=== PATIENT | male | born 1985 | race Caucasian/White ===

== ENCOUNTER 2016-11-28 09:38 | Emergency (ER) | payer SELFPAY ==
[2016-11-28 09:44] VITALS: RESP 18
[2016-11-28] MEDS ORDERED: SODIUM CHLORIDE 0.9% 1,000 ML IV STA ×2 (09:52)
[2016-11-28] MEDS ORDERED: ONDANSETRON 4 MG/2 ML VIAL IVP STA (09:52)
--- NOTE | 2016-11-28 09:55 | ED ---
General Adult HPI - General Chief complaint: Abdominal Pain Stated complaint: ABDOMINAL PAIN, NAUSEA Time Seen by Provider: 11/28/16 09:46 Source: patient, RN notes reviewed Mode of arrival: ambulatory Limitations: no limitations - History of Present Illness Initial comments: Patient 31-year-old male who presents emergency room today with chief complaint of symptoms of nausea vomiting abdominal pain that began late last night approximately 12 hours ago. He does admit that it started approximately 2 hours after eating some chicken nuggets. Patient denies any signs of blood in the emesis. Does admit to a few episodes of diarrhea. He denies any other complaints associated symptoms. Patient denies any recent fever, chills, shortness of breath, chest pain, back pain, numbness or tingling, dysuria or hematuria, constipation, headaches or visual changes, or any other complaints. - Related Data Home Medications Medication Instructions Recorded Confirmed FLUoxetine HCL [Sarafem] 60 mg PO DAILY 09/27/16 09/27/16 Previous Rx's Medication Instructions Recorded Famotidine [Pepcid] 20 mg PO DAILY PRN #10 tablet 09/27/16 Ondansetron Odt [Zofran Odt] 4 mg PO Q8HR PRN #12 tab 09/27/16 Ondansetron Odt [Zofran ODT] 4 mg PO Q8HR PRN #15 tab 11/28/16 Allergies Allergy/AdvReac Type Severity Reaction Status Date / Time No Known Allergies Allergy Verified 11/28/16 09:44 Review of Systems ROS Statement: Those systems with pertinent positive or pertinent negative responses have been documented in the HPI. ROS Other: All systems not noted in ROS Statement are negative. Past Medical History Past Medical History: No Reported History History of Any Multi-Drug Resistant Organisms: None Reported Past Surgical History: Ear Surgery Past Psychological History: Depression Smoking Status: Former smoker Past Alcohol Use History: Occasional Past Drug Use History: None Reported General Exam - General Exam Comments Initial Comments: General: The patient is awake and alert, in no distress, and does not appear acutely ill. Eye: Pupils are equal, round and reactive to light, extra-ocular movements are intact. No nystagmus. There is normal conjunctiva bilaterally. No signs of icterus. Ears, nose, mouth and throat: There are moist mucous membranes and no oral lesions. Neck: The neck is supple, there is no tenderness or JVD. Cardiovascular: There is a regular rate and rhythm. No murmur, rub or gallop is appreciated. Respiratory: Lungs are clear to auscultation, respirations are non-labored, breath sounds are equal. No wheezes, stridor, rales, or rhonchi. Gastrointestinal: Soft, non-distended, non-tender abdomen without masses or organomegaly noted. There is no rebound or guarding present. No CVA tenderness. Bowel sounds are unremarkable. Musculoskeletal: Normal ROM, no tenderness. Strength 5/5. Sensation intact. Pulses equal bilaterally 2+. Neurological: A&O x 3. CN II-XII intact, There are no obvious motor or sensory deficits. Coordination appears grossly intact. Speech is normal. Skin: Skin is warm and dry and no rashes or lesions are noted. Psychiatric: Cooperative, appropriate mood & affect, normal judgment. Limitations: no limitations Course Vital Signs 11/28/16 09:42 Temperature 97.6 F Pulse Rate 93 Respiratory 18 Rate Blood Pressure 138/90 O2 Sat by Pulse 99 Oximetry Medical Decision Making - Medical Decision Making Patient reexamined at this time shows no signs of distress. States he is feeling better. Abdomen soft on palpation. His x-rays unremarkable. His labs been reviewed shows white count of 13,000. [place] to be related to symptoms of nausea vomiting throughout the night. Patient's has mild elevation of liver enzymes. Patient does admit to being an occasional drinker. He was advised follow-up with his family doctor over the next 2 days. Will be given nausea medication go home with. Signs and symptoms return were discussed with the patient. Advised return for any increase or worsening of symptoms or fever. Patient and mother at bedside state understanding and agreement. - Lab Data Result diagrams: 11/28/16 09:57 11/28/16 09:57 Lab Results 11/28/16 11/28/16 Range/Units 09:57 09:57 WBC 13.2 H (3.8-10.6) k/uL RBC 4.89 (4.30-5.90) m/uL Hgb 15.7 (13.0-17.5) gm/dL Hct 44.1 (39.0-53.0) % MCV 90.1 (80.0-100.0) fL MCH 32.0 (25.0-35.0) pg MCHC 35.6 (31.0-37.0) g/dL RDW 13.4 (11.5-15.5) % Plt Count 338 (150-450) k/uL Neutrophils % 89 % Lymphocytes % 5 % Monocytes % 4 % Eosinophils % 0 % Basophils % 0 % Neutrophils # 11.8 H (1.3-7.7) k/uL Lymphocytes # 0.7 L (1.0-4.8) k/uL Monocytes # 0.5 (0-1.0) k/uL Eosinophils # 0.0 (0-0.7) k/uL Basophils # 0.0 (0-0.2) k/uL Sodium 137 (137-145) mmol/L Potassium 4.6 (3.5-5.1) mmol/L Chloride 97 L (98-107) mmol/L Carbon Dioxide 20 L (22-30) mmol/L Anion Gap 20 mmol/L BUN 17 (9-20) mg/dL Creatinine 0.84 (0.66-1.25) mg/dL Est GFR (MDRD) Af Amer >60 (>60 ml/min/1.73 sqM) Est GFR (MDRD) Non-Af >60 (>60 ml/min/1.73 sqM) Glucose 125 H (74-99) mg/dL Calcium 10.1 (8.4-10.2) mg/dL Total Bilirubin 1.1 (0.2-1.3) mg/dL AST 115 H (17-59) U/L ALT 140 H (21-72) U/L Alkaline Phosphatase 131 H (38-126) U/L Total Protein 8.7 H (6.3-8.2) g/dL Albumin 5.0 (3.5-5.0) g/dL Amylase 66 (30-110) U/L Lipase 73 (23-300) U/L Disposition Clinical Impression: Nausea vomiting and diarrhea Disposition: HOME SELF-CARE Condition: Good Instructions: Acute Nausea and Vomiting (ED) Additional Instructions: Please use nausea medication as prescribed. Please increase oral fluids as discussed. Please follow-up the family doctor over the next 1-2 days. Please return to emergency room for any fevers or increase or worsening symptoms as discussed. Prescriptions: Ondansetron Odt [Zofran ODT] 4 mg PO Q8HR PRN #15 tab PRN Reason: Nausea Time of Disposition: 10:46
[2016-11-28 10:23] LABS: ALT 140 U/L (21-72); AST 115 U/L (17-59); Alkaline Phosphatase 131 U/L (38-126); Amylase 66 U/L (30-110); Anion Gap 20 mmol/L; Blood Urea Nitrogen 17 mg/dL (9-20); Calcium 10.1 mg/dL (8.4-10.2); Carbon Dioxide 20 mmol/L (22-30); Chloride 97 mmol/L (98-107); Glucose 125 mg/dL (74-99); Non-African American GFR(MDRD) >60 (>60 ml/min/1.73 sqM); Potassium 4.6 mmol/L (3.5-5.1); Sodium 137 mmol/L (137-145); Total Bilirubin 1.1 mg/dL (0.2-1.3); Total Protein 8.7 g/dL (6.3-8.2)
[2016-11-28 10:24] LABS: Basophils % (A) 0 %; CH 33.3; CHCM 37.1; Eosinophils % (A) 0 %; HCT 44.1 % (39.0-53.0); HDW 2.61; HGB 15.7 gm/dL (13.0-17.5); Luc # (Auto) 0.16; Luc % (Auto) 1; Lymphocytes # (A) 0.7 k/uL (1.0-4.8); Lymphocytes % (A) 5 %; MCHC 35.6 g/dL (31.0-37.0); MCV 90.1 fL (80.0-100.0); Mean Platelet Volume 6.9; Monocytes # (A) 0.5 k/uL (0-1.0); Monocytes % (A) 4 %; Neutrophils # (A) 11.8 k/uL (1.3-7.7); Neutrophils % (A) 89 %; RBC 4.89 m/uL (4.30-5.90); RDW 13.4 % (11.5-15.5); WBC 13.2 k/uL (3.8-10.6)
--- NOTE | 2016-11-28 10:38 | XR ---
EXAMINATION TYPE: XR KUB DATE OF EXAM: 11/28/2016 10:14 AM CLINICAL HISTORY: Mid abdominal pain with vomiting for one day. TECHNIQUE: 2 upright images of the abdomen are obtained. COMPARISON: Abdominal x-ray and CT abdomen pelvis September 27, 2016. FINDINGS: There is some paucity of bowel gas. Visualized gas is noted in nondistended bowel loops sca ttered throughout the abdomen and pelvis. No suspicious air-fluid levels are seen. There is no visce romegaly, pneumoperitoneum, or abnormal calcification appreciated. The lung bases are clear and the osseous structures are intact. IMPRESSION: Overall nonspecific likely nonobstructive bowel gas pattern.
[2016-11-28 11:03] VITALS: BP 135/87; PULSE 82; TEMP 98.7
== END 2016-11-28 11:03 | disposition home or self-care (01) ==
LOC: EC 09:38
DX: R10.9 Unspecified abdominal pain (principal); R11.2 Nausea with vomiting, unspecified; R19.7 Diarrhea, unspecified; F32.9 Major depressive disorder, single episode, unspecified; Z87.891 Personal history of nicotine dependence; Z79.899 Other long term (current) drug therapy
CPT/HCPCS: 99284; 96374; 96361; 36415; 80053; 82150; 83690; 85025; 74000; J2405

== ENCOUNTER 2019-10-30 18:02 | Emergency (ER) | payer OTHER ==
[2019-10-30] MEDS ORDERED: cloNIDine HCL 0.1 MG TAB PO STA (20:02)
--- NOTE | 2019-10-30 20:12 | ED ---
Recheck HPI - General Chief Complaint: Recheck/Abnormal Lab/Rx Stated Complaint: High BP Time Seen by Provider: 10/30/19 18:49 Source: patient Mode of arrival: ambulatory Limitations: no limitations - History of Present Illness Initial Comments: 34-year-old male patient presented to the emergency department today for evaluation of elevated blood pressure. Patient does have history of hypertension and has not had his medication since February. Patient was sent in by the staff at [facility] facility for medical clearance. Patient is presenting to [facility] for treatment of alcohol dependence. Patient states that he has not had alcohol for the last 12 hours. States that he feels withdrawal symptoms but is otherwise well. He cannot recall the medications he was taking for elevated blood pressure in the past. States there were three different medications. Patient denies any recent rash, fever, chills, shortness breath, chest pain, abdominal pain, diarrhea, constipation, back pain, numbness, tingling, dizziness, weakness, hematuria, dysuria, urinary urgency, urinary frequency, headache, visual changes, or any other complaints. - Related Data Home Medications Medication Instructions Recorded Confirmed FLUoxetine HCL [Sarafem] 60 mg PO DAILY 09/27/16 09/27/16 Previous Rx's Medication Instructions Recorded Famotidine [Pepcid] 20 mg PO DAILY PRN #10 tablet 09/27/16 Ondansetron Odt [Zofran Odt] 4 mg PO Q8HR PRN #12 tab 09/27/16 Ondansetron Odt [Zofran ODT] 4 mg PO Q8HR PRN #15 tab 11/28/16 Allergies Allergy/AdvReac Type Severity Reaction Status Date / Time No Known Allergies Allergy Verified 10/30/19 18:44 Review of Systems ROS Statement: Those systems with pertinent positive or pertinent negative responses have been documented in the HPI. ROS Other: All systems not noted in ROS Statement are negative. Past Medical History Past Medical History: No Reported History History of Any Multi-Drug Resistant Organisms: None Reported Past Surgical History: Ear Surgery Past Psychological History: Anxiety, Depression Smoking Status: Former smoker Past Alcohol Use History: Abuse, Daily Past Drug Use History: None Reported General Exam Limitations: no limitations General appearance: alert, in no apparent distress, other (This is a well- developed, well-nourished adult male patient in no acute distress. Vital signs upon presentation are temperature 97.8F, pulse 106, respirations 18, blood pressure 152/84, pulse ox 99% on room air.) Eye exam: Present: normal appearance, PERRL, EOMI. Absent: scleral icterus, conjunctival injection, periorbital swelling ENT exam: Present: normal exam, normal oropharynx, mucous membranes moist Respiratory exam: Present: normal lung sounds bilaterally. Absent: respiratory distress, wheezes, rales, rhonchi, stridor Cardiovascular Exam: Present: regular rate, normal rhythm, normal heart sounds. Absent: systolic murmur, diastolic murmur, rubs, gallop, clicks GI/Abdominal exam: Present: soft, normal bowel sounds. Absent: distended, tenderness, guarding, rebound, rigid Neurological exam: Present: alert, oriented X3, CN II-XII intact Psychiatric exam: Present: normal affect, normal mood Skin exam: Present: warm, dry, intact, normal color. Absent: rash Course Vital Signs 10/30/19 10/30/19 10/30/19 18:40 19:25 19:48 Temperature 97.8 F Pulse Rate 106 H 100 98 Respiratory 18 18 17 Rate Blood Pressure 152/84 138/88 147/107 O2 Sat by Pulse 99 96 98 Oximetry 10/30/19 10/30/19 10/30/19 20:00 21:46 22:00 Temperature 98.4 F Pulse Rate 108 H 112 H 108 H Respiratory 17 18 18 Rate Blood Pressure 136/89 132/96 117/81 O2 Sat by Pulse 97 97 97 Oximetry Medical Decision Making - Medical Decision Making 34-year-old male patient presents to the emergency department today for evaluation of elevated blood pressure. He was sent from [facility] ER facility for medical clearance. He does have history of elevated blood pressure, has not had medication since February. Physical examination is unre markable. He is experiencing alcohol withdrawal symptoms. Patient was given Catapres here in the emergency department, this did improve blood pressure. He'll be given a Catapres patch to wear for the next week. He is instructed to follow up with his primary care physician for recheck in 1-2 days. Return parameters were discussed in detail. He verbalizes understanding and agrees with this plan. Disposition Clinical Impression: Alcohol withdrawal, Hypertension Disposition: HOME SELF-CARE Condition: Good Instructions (If sedation given, give patient instructions): Alcohol Withdrawal (ED), Hypertension (ED) Additional Instructions: Leave patch in place for 1 week, she become dizzy, pass out, or become faint. Follow-up through primary care physician for reevaluation as soon as possible. Return to the emergency department immediately for any new, worsening, or concerning symptoms. Is patient prescribed a controlled substance at d/c from ED?: No Referrals: None,Stated [Primary Care Provider] - 1-2 days Time of Disposition: 22:15
[2019-10-30 21:47] VITALS: RESP 18; TEMP 98.4
[2019-10-30 22:13] VITALS: BP 117/81; PULSE 108
[2019-10-30] MEDS ORDERED: cloNIDine 0.1 MG/24HR PATCH TRANSDERM ONE (22:30)
== END 2019-10-30 22:50 | disposition home or self-care (01) ==
LOC: EC 18:02
DX: I10 Essential (primary) hypertension (principal); F10.239 Alcohol dependence with withdrawal, unspecified; F32.9 Major depressive disorder, single episode, unspecified; F41.9 Anxiety disorder, unspecified; Z87.891 Personal history of nicotine dependence; Z79.899 Other long term (current) drug therapy
CPT/HCPCS: 99283